=== PATIENT | male | born 1960 | race Caucasian/White ===

== ENCOUNTER 2018-05-25 01:46 | Outpatient (CLI) | payer BC, SELFPAY ==
[2018-05-25 11:23] LABS: HCT 45.9 % (40.0-50.0); HGB 16.1 g/dL (13.5-17.5); Mean Corp. HGB Concentration 35.1 g/dL (32.0-36.0); Mean Corpuscular Hemoglobin 32.1 pg (27.0-33.0); Mean Corpuscular Volume 91.6 fL (80-95); Mean Platelet Volume 12.7 fL (8.0-11.0); Platelet Count 152 x1000/uL (130-400); RBC 5.01 m/cumm (4.50-6.00); RBC Distribution Width 12.8 % (11.8-14.1); White Blood Cell Count 6.23 k/cumm (4.4-10.8)
[2018-05-25 11:24] LABS: Bilirubin Negative (Negative); Blood Negative (Negative); Clarity Cloudy; Glucose Negative (Negative); Ketones Negative (Negative); Leukocyte Esterase Negative (Negative); Nitrite Negative (Negative); Specific Gravity >= 1.030 (1.005-1.025); Urobilinogen 0.2 EU/dL (Up TO 0.2); pH 5.5 (5-8)
[2018-05-25 11:47] LABS: COMMENT (LAB VIEW ONLY) 220.09 mg/dL; Hemoglobin A1C 6.5 % (4.5-6.2); Microalb ug/mg Crea 3.1 ug/mg Cr
[2018-05-25 11:48] LABS: ALT 35 U/L (12-78); AST 18 U/L (15-37); Albumin 3.7 g/dL (3.4-5.0); Alkaline Phosphatase 71 U/L (46-116); Anion Gap 9.4 mmol/L (3-11); BUN 26 mg/dL (7-18); Bilirubin, Total 0.5 mg/dL (0.2-1.0); CO2 31.6 mmol/L (21.0-32.0); CREATININE 1.53 mg/dL (0.70-1.30); Calcium 8.9 mg/dL (8.5-10.1); Chloride 102 mmol/L (98-107); Cholesterol 177 mg/dL (50-200); Estimated GFR 46.98 (mL/min/1.73m2); Glucose 134 mg/dL (70-100); HDL Cholesterol 35 mg/dL (40-60); LDL CHOLESTEROL 126 mg/dL (<100); Potassium 3.9 mmol/L (3.5-5.1); Sodium 143 mmol/L (136-145); Triglyceride 147 mg/dL (30-150)
== END 2018-05-25 02:06 ==
PROVIDERS: PCP Family Medicine; Visit Provider Family Medicine
DX: I10 Essential (primary) hypertension (principal); E11.9 Type 2 diabetes mellitus without complications; R79.89 Other specified abnormal findings of blood chemistry
CPT/HCPCS: 36415; 80053; 80061; 83721; 85027; 81003; 82043; 82570; 83036

== ENCOUNTER 2020-01-28 15:48 | Outpatient (REF) | payer SELFPAY ==
[2020-01-28 16:09] LABS: HCT 44.5 % (40.0-50.0); Mean Corpuscular Hemoglobin 32.4 pg (27.0-33.0); Mean Corpuscular Volume 90.1 fL (80-95); Mean Platelet Volume 12.6 fL (8.0-11.0); Platelet Count 147 x1000/uL (130-400); RBC 4.94 m/cumm (4.50-6.00); RBC Distribution Width 12.5 % (11.8-14.1); White Blood Cell Count 5.43 k/cumm (4.4-10.8)
[2020-01-28 16:33] LABS: Hemoglobin A1C 7.1 % (3.8-5.6)
[2020-01-28 16:42] LABS: ALT 41 U/L (16-63); AST 18 U/L (15-37); Albumin 3.9 g/dL (3.4-5.0); Alkaline Phosphatase 64 U/L (46-116); Anion Gap 8.5 mmol/L (3-11); BUN 23 mg/dL (7-18); Bilirubin, Total 0.5 mg/dL (0.2-1.0); CO2 30.5 mmol/L (21.0-32.0); CREATININE 1.65 mg/dL (0.70-1.30); Calcium 9.3 mg/dL (8.5-10.1); Calculated LDL 121 mg/dL (<100); Chloride 103 mmol/L (98-107); Cholesterol 181 mg/dL (<200); Estimated GFR 42.77 (mL/min/1.73m2); Glucose 190 mg/dL (74-106); HDL Cholesterol 29 mg/dL (40-60); Potassium 3.5 mmol/L (3.5-5.1); Sodium 142 mmol/L (136-145); Triglyceride 156 mg/dL (<150); Vitamin B12 621 pg/mL (193-986)
== END 2020-01-28 16:08 ==
LOC: NCHCN 15:48
PROVIDERS: PCP Family Medicine; Visit Provider Family Medicine
DX: E11.9 Type 2 diabetes mellitus without complications (principal); K21.9 Gastro-esophageal reflux disease without esophagitis
CPT/HCPCS: 80053; 80061; 85027; 82607; 83036

== ENCOUNTER → 2020-09-12 16:19 | Outpatient (REF) | payer SELFPAY ==
[2020-09-12 22:04] LABS: BUN 29 mg/dL (7-18); CREATININE 1.69 mg/dL (0.70-1.30); Calcium 9.6 mg/dL (8.5-10.1); Chloride 100 mmol/L (98-107); Estimated GFR 41.46 (mL/min/1.73m2); Glucose 174 mg/dL (74-106); Potassium 3.5 mmol/L (3.5-5.1); Sodium 139 mmol/L (136-145)
[2020-09-12 22:24] LABS: Hemoglobin A1C 7.1 % (<5.7)
== END ==
LOC: LBN 16:19
PROVIDERS: PCP Family Medicine; Visit Provider Emergency Medicine
DX: E11.9 Type 2 diabetes mellitus without complications (principal); I10 Essential (primary) hypertension
CPT/HCPCS: 80048; 83036

== ENCOUNTER 2020-10-02 14:55 | Emergency (ER) | payer SELFPAY ==
[2020-10-02] VITALS (21 sets, daily range): BP systolic 125–169; BP diastolic 68–92; PULSE 72–78; RESP 11–18; TEMP 36.9–37.1; O2SAT 95–98
--- NOTE | 2020-10-02 14:45 | RT.EKG_ITS ---
APPROVED REPORT Exam: Resting ECG Patient Location: E HR:77 bpm ECG Measurements Heart Rate 77 AXIS MO 141 P -20 QRSd 89 QRS -57 QT 400 T 78 QTc 452 Conclusion Sinus rhythm...normal P axis, V-rate 60- 99 Left anterior fascicular block...axis(240,-40), init forces inf Nonspecific T abnrm, anterolateral leads...T <-0.10mV, I aVL V2-V6 I have reviewed and interpreted ECG and agree with software generated interpretation.
--- NOTE | 2020-10-02 14:58 | W.ED.GENAD ---
Discharge Plan Disposition Patient Disposition: HOME Condition: Stable Discharge Details Clinical Impression: Dizziness, Electrical shock sensation, Hypokalemia Primary Care Provider: Angelo Bianchi ED Provider: Alva Mcdaniel Home Meds and New Rx's Prescriptions: Continued metformin 500 mg tablet 500 mg PO BID Qty: 180 RF: 3 pravastatin 20 mg tablet 20 mg PO DAILY Qty: 90 RF: 3 atenolol-chlorthalidone 50-25 mg tablet 1 tab PO DAILY Qty: 90 RF: 4 potassium chloride [Klor-Con M20] 20 mEq tablet,ER particles/crystals 20 meq PO DAILY Qty: 90 RF: 3 Discharge Instructions Instructions: Hypokalemia (ED), Dizziness (ED) Additional Instructions: Drink plenty of fluids and get plenty of rest. Supplement additional potassium in your diet or take an extra supplement of your regular potassium over the next few days. Call your primary care doctor's office tomorrow to schedule follow-up appointment for reevaluation within the next week and for referral for outpatient radiographer cardiac catheterization if your symptoms return or worsen. Return immediately to the emergency department if you develop any worsening or new concerning symptoms. Discharge Data Discharge Date/Time-TO BE ENTERED AT DEPARTURE: 10/02/20 17:05 Discharge Physician: Alva Mcdaniel Medical Decision Making 60-year-old male with a history of diabetes, hypertension, GERD, cholecystectomy presents for evaluation of a right foot twinge that caused an electric shock type sensation from his right foot up to his upper body that resolved after several seconds followed by shakiness and slight dizziness. Shortly after arrival to ED, patient asymptomatic and denies any acute complaints. His blood pressure was initially hypertensive but then normalized and all vitals were within normal limits. He appears comfortable and nontoxic. PERRLA. EOMI. Lungs clear. Abdomen soft nontender. No focal deficits. Bilateral distal lower extremities appear normal to inspection without evidence of cellulitis, trauma and are neurovascularly intact. EKG notes rate of 77, sinus, no STEMI, nondiagnostic. He admits to increased stress at home recently. He was also started on pravastatin 5 days ago. Differential diagnosis includes vasovagal near syncope, dehydration, electrolyte abnormality, arrhythmia, medication reaction. Patient referred for labs and imaging. Potassium 3.0, magnesium 1.6, both were repleted. Troponin negative. Urinalysis negative. CT head and chest x-ray negative. Patient reassessed and denied any acute complaints and is requesting to go home. Recommended that he follow-up with his primary care doctor for reevaluation and referral for radiographer cardiac catheterization if symptoms do not improve or worsen. Also discussed the possibility that pravastatin may be a contributing cause but as his symptoms were brief, will not stop this medication at this time. Usual and customary return precautions given prior to discharge. Medical Records Medical records reviewed: Yes I reviewed the patient's medical records. Imaging Data Radiologic Study: Radiologist's impression: CT HEAD WO CLINICAL HISTORY: R foot twinge, dizziness, r/o acute cva. TECHNIQUE: Imaging Protocol: Axial computed tomography images with coronal and sagittal reformatted images were created and reviewed COMPARISON: No exams were available for comparison FINDINGS: The ventricular system is normal in appearance. No evidence of acute intracranial hemorrhage, mass effect, or midline shift. The orbital structures are unremarkable. The temporal bone structures appear intact. Calvarium: Normal. Visualized Paranasal sinuses/Mastoids: Clear. IMPRESSION: Normal cranial CT. XR CHEST 2V PA LATERAL CLINICAL HISTORY: chest heaviness, r/o acute disease. TECHNIQUE: 2D digital imaging was performed. COMPARISON: Chest x-ray 12/05/2010 FINDINGS: Heart size is normal. The mediastinum is not widened. Lungs are clear. No infiltrates nor pleural effusions. IMPRESSION: No acute pulmonary findings.No significant change from November 2010. Lab Data Lab results reviewed: Yes I reviewed the patient's lab results. Labs: Laboratory Tests Range/Units 10/02/20 10/02/20 10/02/20 15:37 15:37 15:37 WBC (4.4-10.8) 10^3/uL 6.99 RBC (4.36-5.78) 10^6/uL 5.26 Hgb (13.5-17.5) g/dL 16.8 Hct (40.0-50.0) % 46.9 MCV (80-95) fL 89.2 MCH (27.0-33.0) pg 31.9 MCHC (32.0-36.0) % 35.8 RDW (11.8-14.1) % 11.6 L Plt Count (130-400) 10^3/uL 172 MPV (8.0-11.0) fL 11.8 H Immature Gran % 0.1 Neutrophils % 63.1 Lymphocytes % 25.5 Monocytes % 8.7 Eosinophils % 2.0 Basophils % 0.6 Nucleated RBC % % 0 Absolute Neutrophils (1.2-6.7) 10^3/uL 4.41 Absolute Lymphocytes (1.2-3.4) 10^3/uL 1.78 Absolute Monocytes (0.1-0.8) 10^3/uL 0.61 Absolute Eosinophils (0.0-0.7) 10^3/uL 0.14 Absolute Basophils (0.0-0.2) 10^3/uL 0.04 PT (9.3-11.0) sec 10.7 INR (0.9-1.1) 1.1 APTT (21.0-27.5) sec 24.7 Sodium (136-145) mmol/L 142 Potassium (3.5-5.1) mmol/L 3.0 L Chloride (98-107) mmol/L 100 Carbon Dioxide (21.0-32.0) mmol/L 32.9 H Anion Gap (3-11) mmol/L 9.1 BUN (7-18) mg/dL 28 H Creatinine (0.70-1.30) mg/dL 1.7 H Estimated GFR/1.73 m2 (mL/min/1.73m2) 41.18 Glucose (74-106) mg/dL 160 H Calcium (8.5-10.1) mg/dL 9.9 Magnesium (1.8-2.4) mg/dL 1.6 L Total Bilirubin (0.2-1.0) mg/dL 0.5 AST (15-37) U/L 13 L ALT (16-63) U/L 29 Alkaline Phosphatase (46-116) U/L 76 Troponin I (<0.06) ng/mL < 0.05 Total Protein (6.4-8.2) g/dL 8.0 Albumin (3.4-5.0) g/dL 4.0 Urine Color (Yellow) Urine Clarity (Clear) Urine pH (5-8) Ur Specific [place] (1.005-1.025) Urine Protein (Negative) mg/dL Urine Ketones (Negative) mg/dL Urine Blood (Negative) Urine Nitrite (Negative) Urine Bilirubin (Negative) Urine Urobilinogen (Up TO 0.2) EU/dL Ur Leukocyte Esterase (Negative) Urine Glucose (Negative) mg/dL Range/Units 10/02/20 15:37 WBC (4.4-10.8) 10^3/uL RBC (4.36-5.78) 10^6/uL Hgb (13.5-17.5) g/dL Hct (40.0-50.0) % MCV (80-95) fL MCH (27.0-33.0) pg MCHC (32.0-36.0) % RDW (11.8-14.1) % Plt Count (130-400) 10^3/uL MPV (8.0-11.0) fL Immature Gran % Neutrophils % Lymphocytes % Monocytes % Eosinophils % Basophils % Nucleated RBC % % Absolute Neutrophils (1.2-6.7) 10^3/uL Absolute Lymphocytes (1.2-3.4) 10^3/uL Absolute Monocytes (0.1-0.8) 10^3/uL Absolute Eosinophils (0.0-0.7) 10^3/uL Absolute Basophils (0.0-0.2) 10^3/uL PT (9.3-11.0) sec INR (0.9-1.1) APTT (21.0-27.5) sec Sodium (136-145) mmol/L Potassium (3.5-5.1) mmol/L Chloride (98-107) mmol/L Carbon Dioxide (21.0-32.0) mmol/L Anion Gap (3-11) mmol/L BUN (7-18) mg/dL Creatinine (0.70-1.30) mg/dL Estimated GFR/1.73 m2 (mL/min/1.73m2) Glucose (74-106) mg/dL Calcium (8.5-10.1) mg/dL Magnesium (1.8-2.4) mg/dL Total Bilirubin (0.2-1.0) mg/dL AST (15-37) U/L ALT (16-63) U/L Alkaline Phosphatase (46-116) U/L Troponin I (<0.06) ng/mL Total Protein (6.4-8.2) g/dL Albumin (3.4-5.0) g/dL Urine Color (Yellow) Yellow Urine Clarity (Clear) Clear Urine pH (5-8) 5.0 Ur Specific [place] (1.005-1.025) 1.025 Urine Protein (Negative) mg/dL Negative Urine Ketones (Negative) mg/dL Negative Urine Blood (Negative) Negative Urine Nitrite (Negative) Negative Urine Bilirubin (Negative) Negative Urine Urobilinogen (Up TO 0.2) EU/dL 0.2 Ur Leukocyte Esterase (Negative) Negative Urine Glucose (Negative) mg/dL Negative ECG Data Attestation: I personally reviewed and interpreted this ECG (s) as follows: Interpretation: Rate of 77, sinus, no acute ST elevation or depression. OK 141. QRS 89. QTc 452. HPI General Mode of arrival: ambulatory. Date/Time Provider Initiated Documentation: 10/02/20 14:56. Limitations to Documentation: no limitations. Information obtained by: patient. HPI Narrative: Patient is a 60-year-old male with a history of GERD, hypertension, kidney stones, diabetes and cholecystectomy who presents for evaluation after an episode in which he felt an electric shock type jolts extending from his right medial foot up through his body into his chest. He states this occurred while driving and lasted approximately several seconds and then resolved. Patient states the funny feeling in his upper body lasted several minutes longer. He states he also felt shaky during this episode. He states he feels slightly shaky at this time but overall symptoms have resolved. He states his car was improved control and he was not flexing or extending his foot while he was driving. He denies any recent injury to his foot or leg. He denies recent fever, recent illness, headache, unilateral extremity weakness or numbness, chest pain, shortness of breath, abdominal pain, nausea, vomiting, diarrhea, urinary symptoms, recent sick contacts, recent travel. He states he was started on pravastatin by his primary care doctor 5 days ago. He states he checks his sugar twice weekly and it has been running in the low 100s. He does admit to increased stress at home recently as he had his niece and her 3 children move in with him and his [id number] recently causing him to have lack of sleep. Related Data Home Medications Medication Instructions Recorded Confirmed atenolol 50 mg-chlorthalidone 25 1 tab PO DAILY #90 tab-cap 09/13/19 10/02/20 mg tablet metformin 500 mg tablet 500 mg PO BID #180 tab 01/28/20 10/02/20 potassium chloride 20 mEq 20 meq PO DAILY #90 tab 07/24/20 10/02/20 tablet,extended release(part/cryst) pravastatin 20 mg tablet 20 mg PO DAILY #90 tab 09/12/20 10/02/20 Previous Rx's Medication Instructions Recorded atenolol 50 mg-chlorthalidone 25 1 tab PO DAILY #90 tab-cap 09/13/20 mg tablet metformin 500 mg tablet 500 mg PO BID #180 tab 01/28/20 potassium chloride 20 mEq 20 meq PO DAILY #90 tab 07/24/20 tablet,extended release(part/cryst) pravastatin 20 mg tablet 20 mg PO DAILY #90 tab 09/12/20 Allergies Allergy/AdvReac Type Severity Reaction Status Date / Time No Known Allergies Allergy Unverified 10/02/20 15:08 Review of Systems All systems reviewed & are unremarkable except as noted in HPI and below Constitutional Constitutional: Reports as per HPI, Denies chills and Denies fever(s) Eyes Eyes: Denies blurry vision ENT Ears, Nose, Mouth, and Throat: Denies dizziness, Denies sore throat and Denies throat swelling Cardiovascular Cardiovascular: Denies chest pain and Denies dyspnea Respiratory Respiratory: Denies cough and Denies dyspnea Gastrointestinal Gastrointestinal: Denies abdominal pain, Denies diarrhea and Denies vomiting Genitourinary Genitourinary: Denies hematuria and Denies dysuria Musculoskeletal Musculoskeletal: Denies back pain and Denies numbness Integumentary/Breasts Skin/Breast: Denies lesions and Denies rash Neurologic Neurologic: Denies dizziness, Denies localized weakness and Denies numbness Allergic/Immunologic Allergic/Immunologic: Denies throat swelling [facility] Medical History (Updated 10/02/20 @ 16:48 by Alva Mcdaniel DO) Diabetes Essential hypertension (08/11/13) Gastroesophageal reflux disease Surgical History (Updated 06/02/18 @ 14:34 by Arrively [place]) Cholecystectomy (~2008) Family History Mother No problems noted. Father Essential hypertension Sister Essential hypertension Hypercholesteremia Social History Smoking/Tobacco Use Status: Never Smoking risk assessment performed?: Yes Alcohol Intake: never Drug use: Never Do you feel safe at home: Yes Do you feel safe in your relationship?: Yes Exam Const General: cooperative and no acute distress Orientation: alert, awake and oriented x3 [facility] Head: normal to inspection Face and sinus: normal facial exam Eyes General: appearance normal, both eyes and all related structures Pupils: PERRL EOM: EOM intact bilaterally Neck Neck: normal visual inspection and No submandibular swelling Lymphatic: no lymphadenopathy noted Chest Chest: normal inspection of the chest and no tenderness Resp Effort & Inspection: normal respiratory effort and able to speak in complete sentences Auscultation: clear to auscultation bilaterally Cardio Rate: regular rate Rhythm: regular rhythm GI Inspection: normal to inspection Palpation: soft, not firm, not rigid and nontender Auscultation: normal bowel sounds Skin General skin exam: no rashes or lesions noted Neuro General: patient alert, patient awake, patient oriented x3, gait normal, moves all extremities and no meningeal signs Cranial Nerves: CN's II-XI intact bilaterally Cognition: normal cognition Speech: speech normal Motor: muscle tone normal throughout and strength 5/5 throughout Sensory Exam: no sensory deficits noted Extrem General: normal to inspection, full ROM, capillary refill normal, no calf tenderness bilaterally and no edema Other: Bilateral DP/PT pulses intact. There is no ankle or foot edema, erythema, ecchymosis, or evidence of deformity. Motor/sensory grossly intact bilateral distal lower extremities. Psych Appearance: grossly normal Mental Status: mental status grossly normal Speech and Movement: speech and movement normal Affect: normal affect
--- NOTE | 2020-10-02 15:30 | DI.CT_ITS ---
EXAM: CT HEAD WO CLINICAL HISTORY: R foot twinge, dizziness, r/o acute cva. TECHNIQUE: Imaging Protocol: Axial computed tomography images with coronal and sagittal reformatted images were created and reviewed COMPARISON: No exams were available for comparison FINDINGS: The ventricular system is normal in appearance. No evidence of acute intracranial hemorrhage, mass effect, or midline shift. The orbital structures are unremarkable. The temporal bone structures appear intact. Calvarium: Normal. Visualized Paranasal sinuses/Mastoids: Clear. IMPRESSION: Normal cranial CT. RADIATION DOSE DELIVERED: 819.43mGy.cm Total DLP 819.43mGy.cm Total DLP DATA REPOSITORY: All CT scans at this facility are submitted to the National Radiology Data Registry (NRDR) Dose Index Registry (DIR) with the [employer] ([employer]). RADIATION OPTIMIZATION: All CT scans at this facility use at least one of these dose optimization te chniques: automated exposure control; mA and/or kV adjustment per patient size (includes targeted exa ms where dose is matched to clinical indication); or iterative reconstruction.
--- NOTE | 2020-10-02 15:30 | DI.RAD_ITS ---
EXAM: XR CHEST 2V PA LATERAL CLINICAL HISTORY: chest heaviness, r/o acute disease. TECHNIQUE: 2D digital imaging was performed. COMPARISON: Chest x-ray 12/05/2010 FINDINGS: Heart size is normal. The mediastinum is not widened. Lungs are clear. No infiltrates nor pleural effusions. IMPRESSION: No acute pulmonary findings.No significant change from November 2010. DATA REPOSITORY: RADIATION DOSE DELIVERED:
[2020-10-02 15:49] LABS: Abs Immature Grans 0.01 10^3/uL (0.0-0.06); Absolute Basophil Count 0.04 10^3/uL (0.0-0.2); Absolute Eosinophil Count 0.14 10^3/uL (0.0-0.7); Absolute Lymphocyte Count 1.78 10^3/uL (1.2-3.4); Absolute Monocyte Count 0.61 10^3/uL (0.1-0.8); Absolute Neutrophil Count 4.41 10^3/uL (1.2-6.7); Basophils % 0.6; HCT 46.9 % (40.0-50.0); HGB 16.8 g/dL (13.5-17.5); Immature Grans % 0.1; Lymphocytes % 25.5; MCH 31.9 pg (27.0-33.0); MCHC 35.8 % (32.0-36.0); MCV 89.2 fL (80-95); MPV 11.8 fL (8.0-11.0); Monocytes % 8.7; Neutrophils % 63.1; Nucleated RBC 0 %; Platelet Count 172 10^3/uL (130-400); RBC 5.26 10^6/uL (4.36-5.78); RDW 11.6 % (11.8-14.1); RDW-SD 37.2 fL; WBC 6.99 10^3/uL (4.4-10.8)
[2020-10-02 15:55] LABS: Bilirubin Negative (Negative); Blood Negative (Negative); Clarity Clear (Clear); Glucose Negative (Negative); Ketones Negative (Negative); Leukocyte Esterase Negative (Negative); Nitrite Negative (Negative); Specific Gravity 1.025 (1.005-1.025); Urobilinogen 0.2 EU/dL (Up TO 0.2)
[2020-10-02 16:02] LABS: INR 1.1 (0.9-1.1); PTT Activated 24.7 sec (21.0-27.5); Prothrombin Time 10.7 sec (9.3-11.0)
[2020-10-02 16:05] LABS: ALT 29 U/L (16-63); AST 13 U/L (15-37); Alkaline Phosphatase 76 U/L (46-116); Anion Gap 9.1 mmol/L (3-11); BUN 28 mg/dL (7-18); Bilirubin, Total 0.5 mg/dL (0.2-1.0); CO2 32.9 mmol/L (21.0-32.0); CREATININE 1.7 mg/dL (0.70-1.30); Calcium 9.9 mg/dL (8.5-10.1); Chloride 100 mmol/L (98-107); Estimated GFR 41.18 (mL/min/1.73m2); Glucose 160 mg/dL (74-106); Magnesium 1.6 mg/dL (1.8-2.4); Sodium 142 mmol/L (136-145)
[2020-10-02 16:07] LABS: Troponin I < 0.05 ng/mL (<0.06)
[2020-10-02] MEDS: Normal Saline 1,000 ML 1000 ML IV (16:15)
--- NOTE | 2020-10-02 16:23 | DI.VRAD_ITS ---
PROCEDURE INFORMATION: Exam: XR Chest, 2 Views Exam date and time: 10/02/2020 4:03 PM Age: 60 years old Clinical indication: Other: Chest heaviness, R/O acute disease TECHNIQUE: Imaging protocol: XR of the chest Views: 2 views. COMPARISON: No relevant prior studies available. FINDINGS: Lungs: The lungs are clear without opacity or suspicious parenchymal finding. Pleural spaces: Unremarkable. No pleural effusion. No pneumothorax. Heart/Mediastinum: Unremarkable. No cardiomegaly. Bones/joints: Unremarkable. Organs: Cholecystectomy clips. IMPRESSION: No acute cardiopulmonary process. Dictated and Authenticated by: Ivan Johnson MD. Ordering:YVES Calle MD
[2020-10-02] MEDS: Potassium Chloride 20 MEQ TABCR 40 MEQ PO (16:25)
[2020-10-02] MEDS: Magnesium Oxide 400 MG TAB PO (16:25)
== END 2020-10-02 17:05 | disposition home or self-care (01) ==
PROVIDERS: Emergency Provider Physician Assistant; PCP Family Medicine
DX: R20.2 Paresthesia of skin (principal); R42 Dizziness and giddiness; E87.6 Hypokalemia; Z63.8 Other specified problems related to primary support group; I10 Essential (primary) hypertension; E11.9 Type 2 diabetes mellitus without complications; Z79.84 Long term (current) use of oral hypoglycemic drugs
CPT/HCPCS: 80053; 93005; 96360; 99284; 70450; 71046; 81003; 83735; 84484; 85025; 85610; 85730; 93010

== ENCOUNTER 2022-01-27 04:10 | Outpatient (CLI) | payer SELFPAY ==
[2022-01-27 13:18] LABS: CREATININE 1.6 mg/dL (0.70-1.30); Estimated GFR 44.02 (mL/min/1.73m2); Potassium 3.4 mmol/L (3.5-5.1)
== END 2022-01-27 04:11 | disposition home or self-care (01) ==
PROVIDERS: PCP Nurse Practitioner Family; Visit Provider Nurse Practitioner Family
DX: I10 Essential (primary) hypertension (principal)
CPT/HCPCS: 36415; 82565; 84132

== ENCOUNTER 2024-04-06 23:53 | Outpatient (REF) | payer SELFPAY ==
[2024-04-06 22:04] LABS: COMMENT (LAB VIEW ONLY) 88.54 mg/dL; Microalb ug/mg Crea 4.7 ug/mg Cr
== END 2024-04-06 23:54 | disposition home or self-care (01) ==
LOC: LBN 23:53
PROVIDERS: PCP Nurse Practitioner Family; Visit Provider Nurse Practitioner Family
DX: E11.9 Type 2 diabetes mellitus without complications (principal); I10 Essential (primary) hypertension; Z12.5 Encounter for screening for malignant neoplasm of prostate; E78.2 Mixed hyperlipidemia; Z13.220 Encounter for screening for lipoid disorders
CPT/HCPCS: 82043; 82570

== ENCOUNTER 2024-04-15 01:53 | Outpatient (CLI) | payer SELFPAY ==
[2024-04-15 12:37] LABS: Hemoglobin A1C 7.4 % (<5.7)
[2024-04-15 12:45] LABS: CREATININE 1.7 mg/dL (0.70-1.30); Calculated LDL 50 mg/dL (<100); Cholesterol 121 mg/dL (<200); Estimated GFR 44.46 (mL/min/1.73m2); HDL Cholesterol 34 mg/dL (40-60); Potassium 3.1 mmol/L (3.5-5.1); Triglyceride 188 mg/dL (<150)
[2024-04-15 18:40] LABS: PSA, Screening 1.5 ng/mL (<=4.5)
== END 2024-04-15 01:54 | disposition home or self-care (01) ==
LOC: LOS 01:53
PROVIDERS: PCP Nurse Practitioner Family; Visit Provider Nurse Practitioner Family
DX: I10 Essential (primary) hypertension (principal); Z13.1 Encounter for screening for diabetes mellitus; E11.9 Type 2 diabetes mellitus without complications; Z12.5 Encounter for screening for malignant neoplasm of prostate; Z13.220 Encounter for screening for lipoid disorders; E78.2 Mixed hyperlipidemia
CPT/HCPCS: 36415; 80061; 84153; 82565; 83036; 84132